=== PATIENT | female | born 2000 ===

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

== ENCOUNTER → 2022-11-30 | Outpatient (CLI) | payer OTHER ==
[2022-11-30 10:59] LABS: Source, Urine Clean Catch
[2022-11-30 12:01] LABS: U Amphetamine Screen Not Detected; U Barbituate Screen Not Detected; U Benzodiazapine Screen Not Detected; U Buprenorphine Screen Not Detected; U Cannabinoids Screen Not Detected; U Cocaine Screen Not Detected; U Methadone Screen Not Detected; U Methamphetamine Screen Not Detected; U Opiates Screen Not Detected; U Oxycodone Screen Not Detected; U Phencyclidine Screen Not Detected; U Propoxyphene Screen Not Detected
[2022-11-30 12:26] LABS: Squamous Epithelial Cells Many /hpf (Few)
[2022-11-30 12:27] LABS: Mucus Mod (0-Heavy)
[2022-11-30 12:28] LABS: Bacteria Mod /hpf; Oval Fat Bodies Rare /lpf; Transitional Epithelial Cells Few /hpf (0-Rare)
== END | disposition home or self-care (01) ==
LOC: LAB 10:52 → LAB SHORT 10:52
PROVIDERS: Advanced Practice Midwife
DX: Z34.01 Encounter for supervision of normal first pregnancy, first trimester (principal)
CPT/HCPCS: 81015; 87086

== ENCOUNTER → 2023-01-04 | Outpatient (CLI) | payer OTHER ==
[2023-01-06 21:06] LABS: AFP VALUE 62.6 ng/mL (.); GEST. AGE ON COLLECTION DATE 17.7 weeks (.); INSULIN DEP DIABETES No (.); MATERNAL AGE AT EDD 22.9 yr (.); MULTIPLE GESTATION No (.); OSBR RISK 1 IN 3600 (.); RACE Other (.); TEST RESULTS: *Screen Negative* (.); WEIGHT 142 lbs (.)
== END | disposition home or self-care (01) ==
LOC: LAB SHORT 16:45 → LAB 16:45
PROVIDERS: Advanced Practice Midwife
DX: Z34.02 Encounter for supervision of normal first pregnancy, second trimester (principal); Z3A.17 17 weeks gestation of pregnancy
CPT/HCPCS: 82105

== ENCOUNTER → 2023-02-22 | Outpatient (CLI) | payer OTHER ==
[2023-02-22 16:27] LABS: Source, Urine Voided
[2023-02-22 16:35] LABS: Bilirubin, Urine Neg (Neg); Blood, Urine Neg (Neg); Glucose Qualitative, Urine Neg (Neg); Ketones, Urine Neg (Neg); Leukocyte Esterase, Urine 1+ (Neg); Nitrite, Urine Neg (Neg); Protein, Urine Neg (Neg); Specific Gravity, Urine 1.015 (1.003-1.022); Urobilinogen, Urine NORM (Normal); pH, Urine 6.5 (5.0-8.0)
[2023-02-22 16:51] LABS: Appearance, Urine Clear (Clear); Color, Urine Yellow (P-Yellow)
[2023-02-22 16:52] LABS: Bacteria Many /hpf; Red Blood Cells, Urine Not Seen /hpf (0-2); Squamous Epithelial Cells Few /hpf (Few)
== END | disposition home or self-care (01) ==
LOC: LAB SHORT 15:56 → LAB 15:56
PROVIDERS: Advanced Practice Midwife
DX: R31.9 Hematuria, unspecified (principal)
CPT/HCPCS: 81001; 87086

== ENCOUNTER → 2023-03-22 | Outpatient (CLI) | payer OTHER ==
[2023-03-22 16:23] LABS: BASOPHILS ABSOLUTE AUTO 0.01 K/mm3 (0.00-0.23); BASOPHILS PERCENT AUTO 0 % (0-2); EOSINOPHILS ABSOLUTE AUTO 0.07 K/mm3 (0.00-0.68); EOSINOPHILS PERCENT AUTO 1 % (0-6); Hematocrit 33.7 % (33.0-51.0); Hemoglobin 11.2 g/dL (11.5-16.0); IMMATURE GRAN ABSOLUTE AUTO 0.06 K/mm3 (0.00-0.10); IMMATURE GRAN PERCENT AUTO 1 % (0-1); LYMPHOCYTES ABSOLUTE AUTO 1.58 K/mm3 (0.84-5.20); LYMPHOCYTES PERCENT AUTO 26 % (21-46); MONOCYTES ABSOLUTE AUTO 0.34 K/mm3 (0.16-1.47); MONOCYTES PERCENT AUTO 6 % (4-13); Mean Corpuscular HGB 30.7 pg (26.0-34.0); Mean Corpuscular HGB Conc 33.2 g/dL (31.5-36.5); Mean Corpuscular Volume 92 fL (80-100); Mean Platelet Volume 11.1 fL (9.1-12.4); NEUTROPHILS ABSOLUTE AUTO 4.14 K/mm3 (1.96-9.15); NEUTROPHILS PERCENT AUTO 67 % (41-73); Platelet Count 258 K/mm3 (150-400); RDW Coefficient Variation 11.9 % (11.7-14.2); RDW Standard Deviation 40.4 fL (35.1-46.3); Red Blood Cell Count 3.65 M/mm3 (3.80-5.20)
== END ==
LOC: LAB 15:36 → LAB SHORT 15:36
PROVIDERS: Advanced Practice Midwife
DX: Z34.02 Encounter for supervision of normal first pregnancy, second trimester (principal)
CPT/HCPCS: 82950; 85025

== ENCOUNTER → 2023-05-25 | Outpatient (CLI) | payer OTHER | END | disposition home or self-care (01) | LOC: LAB 13:28 → LAB SHORT 13:28 | DX: Z34.02 Encounter for supervision of normal first pregnancy, second trimester (principal) | CPT/HCPCS: 87081; 87150 ==

== ENCOUNTER 2023-06-15 07:06 | Inpatient (IN) | payer OTHER ==
[2023-06-15] VITALS (35 sets, daily range): BP systolic 101–143; BP diastolic 55–103
[~2023-06-15] VITALS: Ht 175.3 cm; Wt 74.0 kg
[2023-06-15] MEDS ORDERED: Methylergonovine Maleate 0.2MG / ML 1ML Amp IM SCH (07:35)
[2023-06-15] MEDS ORDERED: Oxytocin 10 Unit / ML Vial IM SCH (07:35)
[2023-06-15] MEDS ORDERED: Bupivacaine HCl 2.5 MG/ML 10ML P/F Injection XX SCH (07:35)
[2023-06-15] MEDS ORDERED: Misoprostol 200 MCG Tab PR SCH (07:35)
[2023-06-15] MEDS ORDERED: LR Oxytocin 20 Units 1,000 ML IV SCH ×4 (07:35→23:55)
[2023-06-15] MEDS ORDERED: Lactated Ringer's 1,000 ML IV SCH ×3 (07:35→23:55)
[2023-06-15] MEDS ORDERED: Castor Oil 59.146 ML BTL TOP SCH (07:35)
[2023-06-15] MEDS ORDERED: ePHEDrine Sulfate 50 MG/ML 1ML Injection XX PRN (07:35)
[2023-06-15] MEDS ORDERED: Lactated Ringer's 1,000 ML IV PRN (07:35)
[2023-06-15] MEDS ORDERED: Lidocaine HCl 1% 30 ML SDV XX SCH (07:35)
[2023-06-15] MEDS ORDERED: Bupivacaine 0.5% HCl 5 MG/ML 30MLVIAL XX SCH (07:35)
[2023-06-15] MEDS ORDERED: FentaNYL 2mcg/ml-Bup 0.1% Epd 250 ML EPI PRN (07:35)
[2023-06-15 07:51] LABS: BASOPHILS ABSOLUTE AUTO 0.02 K/mm3 (0.00-0.23); BASOPHILS PERCENT AUTO 0 % (0-2); EOSINOPHILS PERCENT AUTO 1 % (0-6); Hemoglobin 11.5 g/dL (11.5-16.0); IMMATURE GRAN ABSOLUTE AUTO 0.07 K/mm3 (0.00-0.10); IMMATURE GRAN PERCENT AUTO 1 % (0-1); LYMPHOCYTES ABSOLUTE AUTO 2.07 K/mm3 (0.84-5.20); LYMPHOCYTES PERCENT AUTO 29 % (21-46); MONOCYTES ABSOLUTE AUTO 0.54 K/mm3 (0.16-1.47); MONOCYTES PERCENT AUTO 8 % (4-13); Mean Corpuscular HGB 30.1 pg (26.0-34.0); Mean Corpuscular HGB Conc 33.8 g/dL (31.5-36.5); Mean Corpuscular Volume 89 fL (80-100); Mean Platelet Volume 10.5 fL (9.1-12.4); NEUTROPHILS PERCENT AUTO 61 % (41-73); Platelet Count 233 K/mm3 (150-400); RDW Coefficient Variation 12.1 % (11.7-14.2); RDW Standard Deviation 38.8 fL (35.1-46.3); Red Blood Cell Count 3.82 M/mm3 (3.80-5.20)
[2023-06-15] MEDS ORDERED: Acetaminophen 325 MG TABLET PO PRN ×2 (08:30→23:45)
[2023-06-15] MEDS ORDERED: Ondansetron HCl 2 MG / ML 2ML Vial IV PRN ×2 (08:30→17:00)
[2023-06-15] MEDS ORDERED: PRENATAL TABLE1 EAC2 PO (08:30)
[2023-06-15] MEDS ORDERED: Calcium Carbonate 500 MG Tab Chew PO PRN (08:30)
[2023-06-15] MEDS ORDERED: FentaNYL Citrate 50 MCG/ML 2 ML Injection IV PRN (08:30)
[2023-06-15] MEDS ORDERED: DiphenhydrAMINE HCl 50 MG/ML 1ML Vial IV PRN (17:00)
[2023-06-15] MEDS ORDERED: ePHEDrine Sulfate 50 MG/ML 1ML Injection IV PRN (17:00)
[2023-06-15] MEDS ORDERED: Metoclopramide HCl 5MG / ML 2ML Vial IV PRN (17:00)
[2023-06-15] MEDS ORDERED: Naloxone HCl 0.4MG / ML 1ML Vial IV PRN (17:00)
[2023-06-15] MEDS ORDERED: Lactated Ringer's 1,000 ML IV ONE (19:26)
--- NOTE | 2023-06-15 19:29 | NUR ---
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 No needs at this time.
[2023-06-15] MEDS ORDERED: Misoprostol 200 MCG Tab PR PRN (23:45)
[2023-06-15] MEDS ORDERED: Lanolin Cream TOP PRN (23:45)
[2023-06-15] MEDS ORDERED: Benzocaine Topical Anesthetic Spray 60GM TOP PRN (23:45)
[2023-06-15] MEDS ORDERED: FLU VACC QS2023-24(6MOS UP)/PF 60 MCG/0.5 ML SYRINGE IM ONE (23:45)
[2023-06-15] MEDS ORDERED: Ibuprofen 400 MG Tab PO PRN (23:45)
[2023-06-15] MEDS ORDERED: Witch Hazel/Glycerin PADS TOP PRN (23:45)
[2023-06-15] MEDS ORDERED: Methylergonovine Maleate 0.2MG / ML 1ML Amp IM PRN (23:55)
[2023-06-15] MEDS ORDERED: Docusate Sodium 100 MG Cap PO PRN (23:55)
[2023-06-16] VITALS (11 sets, daily range): BP systolic 105–127; BP diastolic 56–84
[2023-06-16] MEDS ORDERED: Ketorolac Tromethamine 30mg Vial IV ONE (00:15)
[2023-06-16] MEDS ORDERED: Ketorolac Tromethamine 30mg Vial IV PRN (00:15)
[2023-06-16] MEDS ORDERED: Prenatal Vit/FE Fumarate/FA 1 Tab PO SCH (09:00)
--- NOTE | 2023-06-16 19:27 | NUR ---
Pt appears to be resting. Support person awake and in room with baby.
[2023-06-17 01:07] VITALS: BP 114/69
[2023-06-17 04:10] VITALS: BP 121/85
[2023-06-17 10:19] VITALS: BP 124/77
== END 2023-06-17 10:51 | disposition home or self-care (01) | DRG 806 ==
LOC: OBS 07:06 → BC 07:10 → OBS 07:17 → BC 07:19
PROVIDERS: ADMIT Advanced Practice Midwife
PROC: 3E033VJ Introduction of Other Hormone into Peripheral Vein, Percutaneous Approach (ICD-10-PCS; principal; 2023-06-15)
PROC: 10E0XZZ Delivery of Products of Conception, External Approach (ICD-10-PCS; principal; 2023-06-15)
PROC: 10H07YZ Insertion of Other Device into Products of Conception, Via Natural or Artificial Opening (ICD-10-PCS; principal; 2023-06-15)
PROC: 10907ZC Drainage of Amniotic Fluid, Therapeutic from Products of Conception, Via Natural or Artificial Opening (ICD-10-PCS; principal; 2023-06-15)
DX: O48.0 Post-term pregnancy (principal); O99.354 Diseases of the nervous system complicating childbirth; Z37.0 Single live birth; Z3A.40 40 weeks gestation of pregnancy; O99.344 Other mental disorders complicating childbirth; F32.A Depression, unspecified; G43.909 Migraine, unspecified, not intractable, without status migrainosus; O77.0 Labor and delivery complicated by meconium in amniotic fluid; O76 Abnormality in fetal heart rate and rhythm complicating labor and delivery; O99.62 Diseases of the digestive system complicating childbirth; K21.9 Gastro-esophageal reflux disease without esophagitis; Z87.828 Personal history of other (healed) physical injury and trauma; Z87.891 Personal history of nicotine dependence
CPT/HCPCS: 36415; 51702; 59200; 85025; 86850; 86900; 86901; A9270; J2405; J2590; J3010; J7120